=== PATIENT | male | born 1985 | race American Indian/Alaskan Native ===

== ENCOUNTER 2016-10-16 12:15 | Emergency (ER) | payer MEDICAID ==
[2016-10-16 12:20] VITALS: BP 113/71; PULSE 82; RESP 20; TEMP 98.6; O2SAT 98
--- NOTE | 2016-10-16 13:23 | C.PDOC ---
History Of Present Illness 31 y/o male presents to ED with right lateral foot pain since yesterday. Patient states he was on barstool and the barstool fell out from under him, causing him to twist his right foot and ankle. Patient reports pain is worse with movement. He denies head injury, sensory changes, chest pain, rashes, head trauma/injury. Time Seen by Provider: 10/16/16 12:24 Chief Complaint (Nursing): Lower Extremity Problem/Injury History Per: Patient History/Exam Limitations: no limitations Onset/Duration Of Symptoms: Days Current Symptoms Are (Timing): Still Present - Hip Description Of Injury: Fell Past Medical History Reviewed: Historical Data, Nursing Documentation, Vital Signs Vital Signs: Last Vital Signs Temp 98.6 F 10/16/16 12:19 Pulse 82 10/16/16 12:19 Resp 20 10/16/16 12:19 BP 113/71 10/16/16 12:19 Pulse Ox 98 10/16/16 13:38 Surgical History: Appendectomy - [facility] Procedures LAPAROSCOP APPENDECTOMY (10/24/12) Family History: States: No Known Family Hx - Social History Hx Tobacco Use: Yes (1-2 cigarettes a day) Hx Alcohol Use: Yes (socially) Hx Substance Use: No - Immunization History Hx Tetanus Toxoid Vaccination: No Hx Influenza Vaccination: No Hx Pneumococcal Vaccination: No Review Of Systems Except As Marked, All Systems Reviewed And Found Negative. Constitutional: Negative for: Weakness Eyes: Negative for: Vision Change Cardiovascular: Negative for: Chest Pain Respiratory: Negative for: Cough Musculoskeletal: Positive for: Leg Pain, Foot Pain Skin: Negative for: Rash Neurological: Negative for: Numbness Physical Exam - Physical Exam Appears: Well, Non-toxic, No Acute Distress Skin: Normal Color, Warm, No Rash Head: Atraumatic, Normacephalic Eye(s): bilateral: Normal Inspection Oral Mucosa: Moist Cardiovascular: Rhythm Regular Respiratory: Normal Breath Sounds, No Rales, No Rhonchi, No Wheezing Extremity: Normal ROM (Digits), Tenderness (Right lateral polishing machine tender to palpation), No Calf Tenderness, Capillary Refill (<2 seconds all digits ), No Deformity, Swelling (Right lateral foot mild swelling) Pulses: Left Dorsalis Pedis: Normal, Right Dorsalis Pedis: Normal Neurological/Psych: Oriented x3, Normal Sensation Gait: Steady ED Course And Treatment O2 Sat by Pulse Oximetry: 98 (RA) Pulse Ox Interpretation: Normal - Other Rad Right foot X-Ray: Viewed By Me, Read By Radiologist Interpretation: Accession No. : [id number]. Patient Name / ID : RENATO CLIFFORD / [id number]. Exam Date : 10/16/2016 12:49:19 ( Approved ). Study Comment : Sex / Age : M / 31Y. Creator : Vanessa Connolly V. Dictator : Vanessa Connolly V. Vp Ancillary : Increment Manager : Vanessa Connolly V. Approver2 : Report Date : 10/16/2016 13:21:27. My Comment : . This report is currently processing and HAS NOT BEEN OFFICIALLY SIGNED BY THE PHYSICIAN - ESTIMATED TIME OF APPROVAL IS 10/16/2016 13 :27. PROCEDURE: Right Foot Radiographs. HISTORY: right lateral foot pain. COMPARISON: None. FINDINGS: BONES: Possible flake osseous avulsion fracture lateral to the calcaneocuboid articulation frontal view only. Most of the soft tissue swelling appears medial however. Correlate clinically. History states lateral pain. This ossification does not project on the lateral view and a typical position for an os peroneum. JOINTS: Normal. SOFT TISSUES: Swelling. OTHER FINDINGS: None. IMPRESSION: Possible flake osseous avulsion fracture fragment lateral to the calcaneal cuboid articulation -donor site not appreciated Progress Note: Patient given PO tylenol Patient given Tylenol, and Xrays of foot ordered and reviewed. (+) for cuboid chip fx. Patient placed in posterior splint by physical therapist technician and checked by me, (+) NV intact. Crutches and instruction given by PT. Reevaluation Time: 13:50 Reassessment Condition: Improved (Patient reassessed, is resting comfortably, in no current pain/distress. He was given Rx for Naprosyn, and was instructed to follow up with orthopedics within 1 week.) Disposition Counseled Patient/Family Regarding: Studies Performed, Diagnosis, Need For Followup, Rx Given - Disposition Referrals: Amarilys Almaraz MD [Medical Doctor] - Ryan Feng III, MD [Staff Provider] - [facility] [Outside] Disposition: HOME/ ROUTINE Disposition Time: 13:50 Condition: STABLE Additional Instructions: FOLLOW UP WITH ORTHOPEDICS OR PODIATRY WITHIN 1 WEEK USE PAIN MEDICATION NEEDED RETURN TO ER IF SYMPTOMS WORSEN Prescriptions: Naproxen [Naprosyn Tab] 375 mg PO BID PRN #20 tab PRN Reason: pain Instructions: Foot Fracture in Adults (ED) Forms: Work Excuse Print Language: [place] - POA Present On Arrival: Falls Or Trauma - Clinical Impression Clinical Impression: Cuboid fracture - Scribe Statement The provider has reviewed the documentation as recorded by the Troyibjosias Tavarez All medical record entries made by the Troyibjosias were at my direction and personally dictated by me. I have reviewed the chart and agree that the record accurately reflects my personal performance of the history, physical exam, medical decision making, and the department course for this patient. I have also personally directed, reviewed, and agree with the discharge instructions and disposition.
--- NOTE | 2016-10-16 13:23 | RAD ---
PROCEDURE: Right Foot Radiographs. HISTORY: right lateral foot pain COMPARISON: None. FINDINGS: BONES: Possible flake osseous avulsion fracture lateral to the calcaneocuboid articulation frontal view only. Most of the soft tissue swelling appears medial however. Correlate clinically. History states lateral pain. This ossification does not project on the lateral view and a typical position for an os peroneum JOINTS: Normal. SOFT TISSUES: Swelling OTHER FINDINGS: None. IMPRESSION: Possible flake osseous avulsion fracture fragment lateral to the calcaneal cuboid articulation -donor site not appreciated
== END 2016-10-16 14:18 | disposition home or self-care (01) ==
LOC: C.ER 12:15
DX: S92.211A Displaced fracture of cuboid bone of right foot, initial encounter for closed fracture (principal); W18.30XA Fall on same level, unspecified, initial encounter
CPT/HCPCS: 29515; 73630; 97116; 97161; 99284; G8978; G8979; G8980